=== PATIENT | female | born 1975 | race Caucasian/White ===

== ENCOUNTER 2016-04-24 09:30 | Outpatient (RCR) | payer BC ==
[2012-07-20 16:31] VITALS: BP 104/64
[~2016-04-24 09:30] MED LIST: NORCO 325 MG-51 TA1 PO; ZOFRAN 4MG T4 MG/TAB PO
[2016-05-16] MEDS ORDERED: TOPIRAMATE50 MG PO (17:03)
== END 2016-05-29 08:00 | disposition home or self-care (01) ==
LOC: PT 09:30
DX: Z47.89 Encounter for other orthopedic aftercare (principal)

== ENCOUNTER 2016-05-16 17:07 | Emergency (ER) | payer OTHER, BC ==
[~2016-05-16 17:07] MED LIST changes: +TOPIRAMATE50 MG PO
== END 2016-05-16 19:44 | disposition home or self-care (01) ==
LOC: ED 17:07
DX: R51 Headache (principal)
CPT/HCPCS: J1885

== ENCOUNTER → 2016-06-05 | Outpatient (CLI) | payer OTHER, BC | LOC: RAD 08:28 | DX: R51 Headache (principal); Z87.828 Personal history of other (healed) physical injury and trauma ==

== ENCOUNTER → 2016-10-21 | Outpatient (REF) ==
[2016-05-16 19:44] VITALS: BP 103/59
== END ==
LOC: LAB 14:59
DX: R51 Headache (principal); F07.81 Postconcussional syndrome; D34 Benign neoplasm of thyroid gland

== ENCOUNTER → 2016-10-26 | Outpatient (CLI) | payer BC ==
[2016-05-16 19:44] VITALS: BP 103/59
== END ==
LOC: RAD 12:00
DX: R51 Headache (principal); Z86.69 Personal history of other diseases of the nervous system and sense organs

== ENCOUNTER → 2016-11-10 | Outpatient (REF) ==
[2016-05-16 19:44] VITALS: BP 103/59
== END ==
LOC: LAB 12:37
DX: R51 Headache (principal); F07.81 Postconcussional syndrome; D34 Benign neoplasm of thyroid gland

== ENCOUNTER → 2017-07-22 | Outpatient (CLI) | payer BC ==
[2016-05-16 19:44] VITALS: BP 103/59
== END ==
LOC: RAD 15:10
DX: M54.2 Cervicalgia (principal); M26.609 Unspecified temporomandibular joint disorder, unspecified side; Z88.5 Allergy status to narcotic agent

== ENCOUNTER 2017-08-20 10:30 | Outpatient (RCR) | payer BC ==
[2016-05-16 19:44] VITALS: BP 103/59
== END 2017-08-20 11:00 | disposition home or self-care (01) ==
LOC: PT 10:30
DX: M54.2 Cervicalgia (principal)

== ENCOUNTER → 2018-02-02 | Outpatient (CLI) | payer BC ==
[2016-05-16 19:44] VITALS: BP 103/59
[2018-02-02 09:13] LABS: EOS # 0.1 (0.04-0.40); HEMATOCRIT 44.4 % (37.0-47.0); HEMOGLOBIN 15.1 g/dL (12.5-16.0); LYMPH# 1.2 (1.50-4.00); MEAN CELL VOLUME 90 fl (78-100); MEAN CORPUSCULAR HEMOGLOBIN 30 pg (27-31); MEAN CORPUSCULAR HGB CONC 34 g/dL (33-37); MEAN PLATELET VOLUME 10.5 fl (7.4-10.4); MONO # 0.2 (0.20-0.80); NEU # 1.9 (1.40-6.50); PLATELET COUNT 264 K/mm3 (130-400); RED BLOOD COUNT 4.96 M/mm3 (4.10-5.30); RED CELL DISTRIBUTION WIDTH 12.3 % (11.5-14.5); WHITE BLOOD COUNT 3.5 K/mm3 (4.8-10.8)
[2018-02-02 09:16] LABS: POTASSIUM 3.8 mmol/L (3.6-5.0)
[2018-02-02 09:28] LABS: PROTHROMBIN TIME 9.8 SECONDS (9.0-12.0)
[2018-02-02 09:41] LABS: URINE APPEARANCE HAZY; URINE BILIRUBIN NEGATIVE (NEGATIVE); URINE BLOOD 50 ery/uL (NEGATIVE); URINE COLOR YELLOW; URINE GLUCOSE NEGATIVE (NEGATIVE); URINE KETONE NEGATIVE (NEGATIVE); URINE LEUKOCYTE ESTERASE 1+ (NEGATIVE); URINE NITRATE NEGATIVE (NEGATIVE); URINE PROTEIN(semi-quant) TRACE mg/dL (NEGATIVE); URINE UROBILINOGEN NORMAL (NORMAL); URINE WBC 16-30 /hpf (0-3)
[2018-02-02 09:42] LABS: URINE MUCUS PRESENT (NOT PRESENT)
== END ==
LOC: LAB 08:52
PROVIDERS: Family Medicine
DX: Z01.812 Encounter for preprocedural laboratory examination (principal)

== ENCOUNTER → 2018-02-03 | Outpatient (CLI) | payer BC ==
[2016-05-16 19:44] VITALS: BP 103/59
[2018-02-03 11:27] LABS: URINE APPEARANCE CLEAR; URINE COLOR YELLOW
[2018-02-03 11:28] LABS: URINE BILIRUBIN NEGATIVE (NEGATIVE); URINE BLOOD NEGATIVE (NEGATIVE); URINE GLUCOSE NEGATIVE (NEGATIVE); URINE KETONE NEGATIVE (NEGATIVE); URINE LEUKOCYTE ESTERASE NEGATIVE (NEGATIVE); URINE NITRATE NEGATIVE (NEGATIVE); URINE PROTEIN(semi-quant) NEGATIVE (NEGATIVE); URINE UROBILINOGEN NORMAL (NORMAL)
== END ==
LOC: LAB 10:42
PROVIDERS: Family Medicine
DX: Z01.812 Encounter for preprocedural laboratory examination (principal)

== ENCOUNTER → 2018-02-16 | Outpatient (CLI) | payer BC ==
[2016-05-16 19:44] VITALS: BP 103/59
== END ==
LOC: LAB 09:35
DX: N39.0 Urinary tract infection, site not specified (principal)

== ENCOUNTER → 2018-03-30 | Outpatient (CLI) | payer BC ==
[2016-05-16 19:44] VITALS: BP 103/59
== END ==
LOC: RAD 13:44
DX: Z09 Encounter for follow-up examination after completed treatment for conditions other than malignant neoplasm (principal); Z98.1 Arthrodesis status; Z96.7 Presence of other bone and tendon implants; Z87.39 Personal history of other diseases of the musculoskeletal system and connective tissue

== ENCOUNTER 2018-06-09 14:00 | Outpatient (RCR) | payer BC ==
[2016-05-16 19:44] VITALS: BP 103/59
== END 2018-07-13 | disposition still patient (30) ==
LOC: PT
DX: Z47.89 Encounter for other orthopedic aftercare (principal); Z98.1 Arthrodesis status

== ENCOUNTER → 2018-07-28 | Outpatient (CLI) | payer BC ==
[2016-05-16 19:44] VITALS: BP 103/59
== END ==
LOC: RAD 13:29
DX: M50.121 Cervical disc disorder at C4-C5 level with radiculopathy (principal); Z98.1 Arthrodesis status

== ENCOUNTER → 2018-08-23 | Outpatient (CLI) | payer BC ==
[2016-05-16 19:44] VITALS: BP 103/59
== END ==
LOC: RAD 09:46
DX: M40.50 Lordosis, unspecified, site unspecified (principal); M54.12 Radiculopathy, cervical region; Z98.1 Arthrodesis status

== ENCOUNTER → 2020-01-04 | Outpatient (CLI) | payer BC ==
[2016-05-16 19:44] VITALS: BP 103/59
== END ==
LOC: LAB 08:11
DX: J02.9 Acute pharyngitis, unspecified (principal); R53.83 Other fatigue; R09.81 Nasal congestion; Z20.828 Contact with and (suspected) exposure to other viral communicable diseases

== ENCOUNTER → 2020-05-06 | Outpatient (CLI) | payer BC ==
[2016-05-16 19:44] VITALS: BP 103/59
== END ==
LOC: RAD 08:52
DX: K21.9 Gastro-esophageal reflux disease without esophagitis (principal)

== ENCOUNTER → 2020-05-08 | Outpatient (CLI) | payer BC ==
[2016-05-16 19:44] VITALS: BP 103/59
[2020-05-08 16:16] LABS: HEMATOCRIT 41.7 % (37.0-47.0); HEMOGLOBIN 13.9 g/dL (12.5-16.0); LYMPH# 1.4 (1.50-4.00); MEAN CELL VOLUME 89 fl (78-100); MEAN CORPUSCULAR HEMOGLOBIN 30 pg (27-31); MEAN CORPUSCULAR HGB CONC 33 g/dL (33-37); MEAN PLATELET VOLUME 9.7 fl (7.4-10.4); MONO # 0.3 (0.20-0.80); NEU # 1.9 (1.40-6.50); PLATELET COUNT 219 K/mm3 (130-400); RED BLOOD COUNT 4.69 M/mm3 (4.10-5.30); RED CELL DISTRIBUTION WIDTH 12.4 % (11.5-14.5); WHITE BLOOD COUNT 3.6 K/mm3 (4.8-10.8)
[2020-05-08 16:29] LABS: ALBUMIN 4.5 g/dL (3.5-5.0)
[2020-05-08 16:31] LABS: CALCIUM 8.9 mg/dL (8.3-10.5)
[2020-05-08 16:34] LABS: TOTAL BILIRUBIN 0.6 mg/dL (0.2-1.2)
[2020-05-08 16:41] LABS: URINE APPEARANCE CLEAR; URINE BILIRUBIN NEGATIVE (NEGATIVE); URINE BLOOD TRACE (NEGATIVE); URINE COLOR YELLOW; URINE GLUCOSE NEGATIVE (NEGATIVE); URINE KETONE NEGATIVE (NEGATIVE); URINE LEUKOCYTE ESTERASE NEGATIVE (NEGATIVE); URINE MUCUS PRESENT (NOT PRESENT); URINE NITRATE NEGATIVE (NEGATIVE); URINE PROTEIN(semi-quant) NEGATIVE (NEGATIVE); URINE UROBILINOGEN NORMAL (NORMAL); URINE WBC 0-1 /hpf (0-3)
== END ==
LOC: RAD 16:01
PROVIDERS: Family Medicine
DX: R10.31 Right lower quadrant pain (principal)

== ENCOUNTER → 2021-04-02 | Outpatient (CLI) | payer SELFPAY | LOC: RAD 14:27 | DX: M25.569 Pain in unspecified knee (principal) ==

== ENCOUNTER → 2021-04-10 | Outpatient (CLI) | payer BC | LOC: RAD 17:41 | DX: M23.342 Other meniscus derangements, anterior horn of lateral meniscus, left knee (principal) ==

== ENCOUNTER → 2021-07-22 | Outpatient (CLI) | payer BC | LOC: VAS 10:47 | DX: M25.562 Pain in left knee (principal); R22.42 Localized swelling, mass and lump, left lower limb ==

== ENCOUNTER 2021-11-13 12:56 | Outpatient (RCR) | payer BC | END 2021-11-16 | disposition home or self-care (01) | LOC: PT | DX: M54.50 Low back pain, unspecified (principal) ==

== ENCOUNTER 2021-11-17 07:57 | Outpatient (RCR) | payer BC | END 2021-12-17 | disposition home or self-care (01) | LOC: PT | DX: M54.50 Low back pain, unspecified (principal) ==

== ENCOUNTER → 2021-12-01 | Outpatient (CLI) | payer BC | LOC: RAD 14:59 | DX: M51.37 Other intervertebral disc degeneration, lumbosacral region (principal) ==

== ENCOUNTER → 2022-05-19 | Outpatient (CLI) | payer BC ==
[~2022-05-19] MED LIST changes: +BUTALBITAL ACE; +COMPAZINE10 M2; +EFFEXOR XR150 M1; +MAXALT10 MG
== END ==
LOC: RAD 13:03
DX: M51.17 Intervertebral disc disorders with radiculopathy, lumbosacral region (principal)

== ENCOUNTER → 2022-06-02 | Outpatient (CLI) | payer BC | LOC: MAMMO 11:14 | DX: Z12.31 Encounter for screening mammogram for malignant neoplasm of breast (principal); N64.89 Other specified disorders of breast ==

== ENCOUNTER → 2022-06-11 | Outpatient (CLI) | payer BC | LOC: MAMMO 12:10 | DX: N63.20 Unspecified lump in the left breast, unspecified quadrant (principal) ==

== ENCOUNTER → 2023-01-01 | Outpatient (CLI) | payer BC | LOC: LAB 10:54 | DX: R07.89 Other chest pain (principal) ==